=== PATIENT | male | born 1980 | race Hispanic/Latino ===

== ENCOUNTER 2018-04-26 09:08 | Emergency (ER) | payer OTHER ==
[2018-04-26 09:13] VITALS: BMI 27.1
[2018-04-26] MEDS ORDERED: EPINEPHrine 1 mg/ml (1:1000) Inj ONE (09:34)
[2018-04-26] MEDS ORDERED: Tdap Vaccine 0.5 ml Vial (10-64 yrs) IM ONE (09:35)
--- NOTE | 2018-04-26 10:07 | ED PDOC ---
HPI: General Adult Time Seen by Provider: 04/26/18 09:26 Chief Complaint (Nursing): Upper Extremity Problem/Injury Additional Complaint(s): 38 y/o M c no PMHx p/w laceration suffered 12 hours ago when mechanically falling through glass pane of door. Patient denies pain, numbness, motor weakness. Unknown last tetanus. Past Medical History Vital Signs: Last Vital Signs Temp 98.8 F 04/26/18 09:12 Pulse 108 H 04/26/18 09:12 Resp BP 115/65 04/26/18 09:12 Pulse Ox 99 04/26/18 10:14 - Family History Family History: States: No Known Family Hx - Home Medications Home Medications: Ambulatory Orders Medication Instructions Recorded Bacitracin Ointment [Bacitracin] 1 appl TOP TID #1 tube 04/26/18 - Allergies Allergies/Adverse Reactions: Allergies Allergy/AdvReac Type Severity Reaction Status Date / Time No Known Allergies Allergy Verified 04/26/18 09:28 Review of Systems ROS Statement: Except As Marked, All Systems Reviewed And Found Negative Constitutional: Negative for: Fever Neurological: Negative for: Weakness, Numbness Physical Exam - Physical Exam Comments: Gen: NAD Head: NC Eyes: No icterus CV: Radial pulse 2+ Extremities: No edema, FROM of digits, wrist, elbow Neuro: Moves all digits, wrist, and elbow. Sensation to light touch intact in hand Skin: Flap laceration to R forearm on extensor surface, no bleeding, no pus, no erythema - ECG O2 Sat by Pulse Oximetry: 99 Medical Decision Making Medical Decision Making: Laceration closed, bacitracin applied, instructed to have sutures removed in 7 days, instructed to return immediately for erythema, pus, fever. Disposition - Clinical Impression Clinical Impression: Laceration - Patient ED Disposition Is Patient to be Admitted: No Counseled Patient/Family Regarding: Diagnosis, Need For Followup - Disposition [facility]errals: [facility]Outside] Disposition: Routine/Home Disposition Time: 10:06 Condition: STABLE Additional Instructions: Have your stitches removed in 7 days by coming back to the ER or making an appointment with the wound care center. Prescriptions: Bacitracin Ointment [Bacitracin] 1 appl TOP TID #1 tube Instructions: Laceration Repair With Stitches (DC) Forms: [employer] (Polish) Laceration - Laceration Repair No standard instances Wound Length (In cm): 5 Description Of Wound: Linear Anesthesia: Lidocaine 1% Wound Examination: Irrigated With Saline, No FB With Wound Exploration, No Tendon Injury With Wound Exploration Wound Closure: Suture (4-0) Suture Technique And Material Used: Interrupted, Nylon Wound Complexity: Simple
[2018-04-26 10:37] VITALS: BP 122/72; PULSE 84; RESP 16; TEMP 97.8; O2SAT 100
== END 2018-04-26 10:25 | disposition home or self-care (01) ==
LOC: H.ER 09:08 → MERGE 09:08 → H.ER 10:25
DX: S51.811A Laceration without foreign body of right forearm, initial encounter (principal); W25.XXXA Contact with sharp glass, initial encounter; Y92.89 Other specified places as the place of occurrence of the external cause